=== PATIENT | male | born 1970 | race Caucasian/White ===

== ENCOUNTER 2022-03-28 19:00 | Inpatient (IN) | payer BC ==
[~2022-03-28] VITALS: Ht 177.8 cm; Wt 119.2 kg
[2022-03-28] MEDS ORDERED: IV NORMAL SALINE 1000ML BAG 1,000 ML IV SCH (19:40)
[2022-03-28] MEDS ORDERED: PIPERACILLIN/TAZOBACTAM 3.375 GM in IV NORMAL SALINE 50ML 50 ML IV ONE (20:45)
[2022-03-28] MEDS ORDERED: methylPREDNISolone SOD SUCC PF 125 MG/2 ML VIAL. IV ONE (20:45)
[2022-03-28] MEDS: IV NORMAL SALINE 1000ML BAG 1,000 ML IV SCH (21:15)
[2022-03-28] MEDS ORDERED: methylPREDNISolone SOD SUCC PF 125 MG/2 ML VIAL. ONE (21:23)
[2022-03-29 03:00] VITALS: BP 118/63
[2022-03-29] MEDS ORDERED: FEXO1TAB31 PO (04:27)
[2022-03-29] MEDS ORDERED: CHOL10008 PO (04:27)
[2022-03-29] MEDS ORDERED: TAMS0.4C97 PO (04:27)
[2022-03-29 07:00] VITALS: BP 127/73
[2022-03-29] MEDS: IV NORMAL SALINE 1000ML BAG 1,000 ML IV SCH ×2 (07:51→13:15)
--- NOTE | 2022-03-29 08:19 | PDOC2 ---
CONSULT Date of Consult Date of Consult DATE: 03/29/22 TIME: 08:10 Reason for Consult Reason for Consult: Abdominal pain, acute diverticulitis History of Present Illness Reason for Visit: This is a 51-year-old gentleman who presents with a sudden onset of abdominal pain yesterday. It began in the mid abdomen and some radiation to the right but now more mid left abdomen. No obvious trigger although he did eat a salad the night before. He is on no specific diet and has not recently had a lot of popcorn nuts or seeds. He has never had diverticulitis before but does recall having a CT/MRI to evaluate prostate issues and was told he had mild diverti culosis at that time. He also had a colonoscopy about 10 years ago because of some rectal bleeding but does not recall being told about diverticuli at that time and his bleeding resolved. He denies any fever or chills. His pain is now improved with little or no pain medications overnight after antibiotic treatment. Initial CT revealed sigmoid diverticulitis with 1 small air bubble outside of the wall suggesting microperforation without abscess. He describes a regular bowel pattern without constipation. He denies any rectal bleeding or changes in bowel pattern recently. No nausea, vomiting or other constitutional complaints Past Medical History GI: Diverticulosis Renal/: Other (History of prostate enlargement, hemospermia, possible kidney stone) Current Problem List Problem List Problems Medical Problems: (1) Diverticulitis Status: Acute Current Medications Current Medications Current Medications Sodium Chloride 1,000 ml @ 1,000 mls/hr Q1H IV ; Start 03/28/22 at 19:40; Stop 03/29/22 at 01:15; Status DC Methylprednisolone Sodium Succinate (SOLU-Medrol 125MG VIAL) 125 mg ONCE ONCE IV ; Start 03/28/22 at 20:45; Stop 03/29/22 at 01:11; Status DC Piperacillin Sod/ Tazobactam Sod 3.375 gm/Sodium Chloride 50 ml @ 100 mls/hr ONCE ONCE IV ; Start 03/28/22 at 20:45; Stop 03/29/22 at 01:11; Status DC Sodium Chloride 1,000 ml @ 125 mls/hr Q8H IV Last administered on 03/29/22at 07:51; Start 03/28/22 at 21:15 Active Scripts Active Reported Lynnette-D 24 Hour Tablet (Fexofenadine/Pseudoephedrine) 1 Each Tab.er.24h 1 Each PO DAILY Vitamin D3 (Cholecalciferol (Vitamin D3)) 25 Mcg Tablet 25 Mcg PO DAILY Flomax (Tamsulosin Hcl) 0.4 Mg Cap.er.24h 0.4 Mg PO DAILY Allergies Allergies: Coded Allergies: doxycycline (Verified Allergy, Unknown, Hives, 03/29/22) Physical Exam General: Alert, Oriented X3, Cooperative, No acute distress HEENT: Atraumatic, PERRLA Lungs: Clear to auscultation Heart: Regular rate, Normal S1, Normal S2 Abdomen: Normal bowel sounds, Soft, No tenderness, No hepatosplenomegaly, No masses Extremities: No clubbing, No cyanosis Neuro: Normal speech Psych/Mental Status: Mental status NL Vitals VITALS Vital Signs Date Time Temp Pulse Resp B/P (MAP) Pulse Ox O2 Delivery O2 Flow Rate FiO2 03/29/22 03:00 98.1 68 20 118/63 (81) 96 Room Air 98.1 Labs Labs WBC 15.5, hemoglobin 13.7 electrolytes normal liver function studies were normal, amylase lipase normal Images Images CT scan of the abdomen pelvis done March 28 at 7:57 PM Small hiatal hernia. Scattered colonic diverticulosis. Short segment of inflammatory wall thickening in the distal sigmoid colon with pericolonic stranding consistent with acute diverticulitis. Small focus of air consistent with microperforation but no abscess. Appendix is normal. Lymph nodes normal Assessment/Plan Assessment/Plan Lower abdominal pain initially felt to be on the right but now more mid or left- sided pain. CT scan and elevated white count suggest acute diverticulitis is the most likely source for the symptoms. He is known to have diverticulosis from previous imaging but has never had diverticulitis before. No obvious trigger other than a salad the night before. Normally eats popcorn regularly without symptoms. Denies constipation or other bowel complaints. Had a colonoscopy probably over 10 years ago for rectal bleeding and is due for a screening colonoscopy The pain symptoms have dramatically improved just with antibiotic therapy. He has not asked for any pain medicine overnight. Examination now suggests minimal to no findings including no point tenderness in the left lower quadrant. This is encouraging suggesting his diverticulitis and microperforation are not advancing and are coming under control with antibiotic therapy alone. Plan: Agree with IV antibiotics but since he is clinically improving and has no tenderness in the left lower quadrant, it is likely that his diverticulitis can be treated in the outpatient setting. I will start him on a clear liquid diet to advance to soft as tolerated and recommended switch to p.o. antibiotics with early discharge (as long as his clinical condition continues to improve). Colonoscopy was discussed and should be considered in the outpatient setting 6 weeks after recovery. We will contact him regarding that issue. BIBIANA MART MD Mar 29, 2022 08:19
--- NOTE | 2022-03-29 08:45 | PDOC2 ---
CONSULT Date of Consult Date of Consult DATE: 03/29/22 TIME: 08:42 Reason for Consult Reason for Consult: Abdominal pain Referring Physician Referring Physician: Monika Identification/Chief Complaint Chief Complaint Abdominal pain left lower quadrant Source Source: Chart review, Patient History of Present Illness Reason for Visit: 51-year-old male developed left lower quadrant abdominal pain about 24 hours ago pain consistently worsening to the point that he came to the emergency department for further evaluation thinking he had an acute appendicitis. He denies any nausea vomiting. On evaluation in the emergency department with a CT scan as shown signs of thickened sigmoid colon consistent with diverticulitis with microperforation. This morning is feeling much better resting comfortably in bed describes no abdominal pain other than when pushing in the area. Feeling hungry would like something to eat Past Medical History Cardiovascular: No pertinent hx Pulmonary: No pertinent hx GI: Diverticulosis Heme/Onc: No pertinent hx Hepatobiliary: No pertinent hx Psych: No pertinent hx Rheumatologic: No pertinent hx Infectious disease: No pertinent hx ENT: No pertinent hx Renal/: No pertinent hx, Other (History of prostate enlargement, hemospermia, possible kidney stone) Endocrine: No pertinent hx Dermatology: No pertinent hx Past Surgical History Past Surgical History: No pertinent history Family History Family History: No Significant Current Problem List Problem List Problems Medical Problems: (1) Diverticulitis Status: Acute Current Medications Current Medications Current Medications Sodium Chloride 1,000 ml @ 1,000 mls/hr Q1H IV ; Start 03/28/22 at 19:40; Stop 03/29/22 at 01:15; Status DC Methylprednisolone Sodium Succinate (SOLU-Medrol 125MG VIAL) 125 mg ONCE ONCE IV ; Start 03/28/22 at 20:45; Stop 03/29/22 at 01:11; Status DC Piperacillin Sod/ Tazobactam Sod 3.375 gm/Sodium Chloride 50 ml @ 100 mls/hr ONCE ONCE IV ; Start 03/28/22 at 20:45; Stop 03/29/22 at 01:11; Status DC Sodium Chloride 1,000 ml @ 125 mls/hr Q8H IV Last administered on 03/29/22at 07:51; Start 03/28/22 at 21:15 Metronidazole (Flagyl) 500 mg Q8HRS PO ; Start 03/29/22 at 14:00 Ciprofloxacin (Cipro) 500 mg BID PO ; Start 03/29/22 at 09:00 Active Scripts Active Reported Lynnette-D 24 Hour Tablet (Fexofenadine/Pseudoephedrine) 1 Each Tab.er.24h 1 Each PO DAILY Vitamin D3 (Cholecalciferol (Vitamin D3)) 25 Mcg Tablet 25 Mcg PO DAILY Flomax (Tamsulosin Hcl) 0.4 Mg Cap.er.24h 0.4 Mg PO DAILY Allergies Allergies: Coded Allergies: doxycycline (Verified Allergy, Unknown, Hives, 03/29/22) ROS General: No: Chills, Night Sweats, Fatigue, Malaise, Appetite, Other PSYCHOLOGICAL ROS: No: Anxiety, Behavioral Disorder, Concentration difficultie, Decreased libido, Depression, Disorientation, Hallucinations, Hostility, Irritablity, Memory difficulties, Mood Swings, Obsessive thoughts, Physical abuse, Sexual abuse, Sleep disturbances, Suicidal ideation, Other Eyes: No Blurry vision, No Decreased vision, No Double vision, No Dry eyes, No Excessive tearing, No Eye Pain, No Itchy Eyes, No Loss of vision, No Photophobia, No Scotomata, No Uses contacts, No Uses glasses, No Other HEENT: No: Heacaches, Visual Changes, Hearing change, Nasal congestion, Nasal discharge, Oral lesions, Sinus pain, Sore Throat, Epistaxis, Sneezing, Snoring, Tinnitus, Vertigo, Vocal changes, Other ALLERGY AND IMMUNOLOGY: No: Hives, Insect Bite Sensitivity, Itchy/Watery Eyes, Nasal Congestion, Post Nasal Drip, Seasonal Allergies, Other Hematological and Lymphatic: No: Bleeding Problems, Blood Clots, Blood Transfusions, Brusing, Night Sweats, Pallor, Swollen Lymph Nodes, Other ENDOCRINE: No: Breast Changes, Galactorrhea, Hair Pattern Changes, Hot Flashes, Malaise/lethargy, Mood Swings, Palpitations, Polydipsia/polyuria, Skin Changes, Temperature Intolerance, Unexpected Weight Changes, Other Respiratory: No: Cough, Hemoptysis, Orthopnea, Pleuritic Pain, Shortness of breath, SOB with excertion, Sputum Changes, Stridor, Tachypnea, Wheezing, Other Cardiovascular: No Chest Pain, No Palpitations, No Orthopnea, No Paroxysmal Noc. Dyspnea, No Edema, No Lt Headedness, No Other Gastrointestinal: Yes Abdominal Pain Genitourinary: No Dysuria, No Frequency, No Incontinence, No Hematuria, No Retention, No Discharge, No Urgency, No Pain, No Flank Pain, No Other, No , No , No , No , No , No , No Musculoskeletal: No Gait Disturbance, No Joint Pain, No Joint Stiffness, No Joint Swelling, No Muscle Pain, No Muscular Weakness, No Pain In:, No Swelling In:, No Other Neurological: No Behavorial Changes, No Bowel/Bladder ControlChng, No Confusion, No Dizziness, No Gait Disturbance, No Headaches, No Impaired Coord/balance, No Memory Loss, No Numbness/Tingling, No Seizures, No Speech Problems, No Tremors, No Visual Changes, No Weakness, No Other Skin: No Dry Skin, No Eczema, No Hair Changes, No Lumps, No Mole Changes, No Mottling, No Nail Changes, No Pruritus, No Rash, No Skin Lesion Changes, No Other, No Acne Physical Exam General: Alert, Oriented X3, Cooperative, mild distress HEENT: Atraumatic, EOMI Lungs: Clear to auscultation, Normal air movement Heart: Regular rate, No murmurs Abdomen: Normal bowel sounds, Soft, Other (Mildly tender to palpation left lower quadrant) Extremities: No edema Skin: No significant lesion Neuro: Normal speech Psych/Mental Status: Mental status NL Vitals VITALS Vital Signs Date Time Temp Pulse Resp B/P (MAP) Pulse Ox O2 Delivery O2 Flow Rate FiO2 03/29/22 07:45 Room Air 03/29/22 07:00 98.2 68 18 127/73 (91) 96 98.2 Assessment/Plan Assessment/Plan Diverticulitis with microperforation continue IV antibiotics advance diet Agree with GIs assessment and treatment plan No surgical needs at this time BETHANY PATEL MD Mar 29, 2022 08:45
[2022-03-29] MEDS ORDERED: CIPROFLOXACIN HCL 250 MG TABLET. PO SCH (09:00)
[2022-03-29 10:39] LABS: BASO % 0 % (0-3); EOS % 0 % (0-3); HEMATOCRIT 40.6 % (39.0-53.0); HEMOGLOBIN 13.8 g/dL (13.0-17.5); LYMPH # 0.5 x10^3/uL (1.0-4.8); LYMPH % 3 % (24-48); MEAN CORPUSCULAR HEMOGLOBIN 28 pg (25-35); MEAN CORPUSCULAR HGB CONC 34 g/dL (31-37); MEAN CORPUSCULAR VOLUME 83 fL (79-100); MONO # 0.2 x10^3/uL (0.0-1.1); MONO % 1 % (0-9); NEUT # 13.2 x10^3/uL (1.8-7.7); NEUT % 95 % (31-73); PLATELET COUNT 173 x10^3/uL (140-400); RED BLOOD COUNT 4.92 x10^6/uL (4.30-5.70); RED CELL DISTRIBUTION WIDTH 13.4 % (11.5-14.5); WHITE BLOOD COUNT 13.9 x10^3/uL (4.0-11.0)
[2022-03-29 11:00] VITALS: BP 126/54
[2022-03-29 11:12] LABS: BACTERIA,URINE FEW /HPF (0-FEW); RBC,URINE 0 /HPF (0-2); WBC,URINE 0 /HPF (0-4)
[2022-03-29 11:13] LABS: ALBUMIN 3.3 g/dL (3.4-5.0); ALBUMIN/GLOBULIN RATIO 0.9 (1.0-1.7); AMORPHOUS SEDIMENT,UR PRESENT /HPF; CALCIUM 8.3 mg/dL (8.5-10.1); CREATININE 1.1 mg/dL (0.7-1.3); POTASSIUM 3.7 mmol/L (3.5-5.1); TOTAL BILIRUBIN 0.9 mg/dL (0.2-1.0); TOTAL PROTEIN 6.8 g/dL (6.4-8.2)
[2022-03-29 11:14] LABS: DIRECT BILIRUBIN 0.2 mg/dL (0.0-0.2)
[2022-03-29 11:20] LABS: BASO # 0.1 x10^3/uL (0.0-0.2); BASO % 1 % (0-3); EOS % 0 % (0-3); HEMATOCRIT 40.2 % (39.0-53.0); HEMOGLOBIN 13.7 g/dL (13.0-17.5); LYMPH # 1.6 x10^3/uL (1.0-4.8); LYMPH % 10 % (24-48); MEAN CORPUSCULAR HEMOGLOBIN 28 pg (25-35); MEAN CORPUSCULAR HGB CONC 34 g/dL (31-37); MEAN CORPUSCULAR VOLUME 83 fL (79-100); MONO # 1.4 x10^3/uL (0.0-1.1); MONO % 9 % (0-9); NEUT # 12.3 x10^3/uL (1.8-7.7); NEUT % 80 % (31-73); PLATELET COUNT 179 x10^3/uL (140-400); RED BLOOD COUNT 4.86 x10^6/uL (4.30-5.70); RED CELL DISTRIBUTION WIDTH 13.6 % (11.5-14.5); WHITE BLOOD COUNT 15.5 x10^3/uL (4.0-11.0)
--- NOTE | 2022-03-29 11:32 | PDOC1 ---
History and Physical Date of Service: DOS: DATE: 03/29/22 TIME: 11:26 Chief Complaint: Chief Complain: Abdominal pain History of Present Illness: HPI: 48-year-old male with no significant past medical history comes in with sudden onset of abdominal pain that began in the mid abdominal region. Pain did radiate to the right side but is now more bilateral. No obvious triggers. Last colonoscopy was 10 years ago for rectal bleeding. No reports of diverticulosis at the time. Patient currently denies any nausea vomiting, fevers or chills, shortness of breath, bloody stools. Past Medical/Surgical History: PMH/PSH: Seasonal allergies, inguinal hernia Allergies: Allergies: Coded Allergies: doxycycline (Verified Allergy, Unknown, Hives, 03/29/22) Family History: Family History: Reviewed with no relative findings in the chart Social History: Social History: Denies any alcohol, tobacco or drug abuse. Current Medications: Current Medications Current Medications Sodium Chloride 1,000 ml @ 1,000 mls/hr Q1H IV ; Start 03/28/22 at 19:40; Stop 03/29/22 at 01:15; Status DC Methylprednisolone Sodium Succinate (SOLU-Medrol 125MG VIAL) 125 mg ONCE ONCE IV ; Start 03/28/22 at 20:45; Stop 03/29/22 at 01:11; Status DC Piperacillin Sod/ Tazobactam Sod 3.375 gm/Sodium Chloride 50 ml @ 100 mls/hr ONCE ONCE IV ; Start 03/28/22 at 20:45; Stop 03/29/22 at 01:11; Status DC Sodium Chloride 1,000 ml @ 125 mls/hr Q8H IV Last administered on 03/29/22at 07:51; Start 03/28/22 at 21:15 Metronidazole (Flagyl) 500 mg Q8HRS PO ; Start 03/29/22 at 14:00 Ciprofloxacin (Cipro) 500 mg BID PO Last administered on 03/29/22at 09:24; Start 03/29/22 at 09:00 Active Scripts Active Reported Lynnette-D 24 Hour Tablet (Fexofenadine/Pseudoephedrine) 1 Each Tab.er.24h 1 Each PO DAILY Vitamin D3 (Cholecalciferol (Vitamin D3)) 25 Mcg Tablet 25 Mcg PO DAILY Flomax (Tamsulosin Hcl) 0.4 Mg Cap.er.24h 0.4 Mg PO DAILY ROS: Review of Systems Review of System REVIEW OF SYSTEMS: GENERAL: Denies weakness SKIN: No bruising, hair changes or rashes. EYES: No blurred, double or loss of vision. NOSE AND THROAT: No history of nosebleeds, hoarseness or sore throat. HEART: No history of palpitations, chest pain or shortness of breath on exertion. LUNGS: Denies cough, hemoptysis, wheezing or shortness of breath. GASTROINTESTINAL: Abdominal pain GENITOURINARY: No history of frequency, urgency, hesitancy or nocturia. NEUROLOGIC: Denies history of numbness, tingling, or tremor. PSYCHIATRIC: No history of panic, anxiety or depression. ENDOCRINE: No history of heat or cold intolerance, polyuria or polydipsia. EXTREMITIES: Denies joint pain, pain on walking or stiffness. Physical Exam: Vital Signs: Vital Signs Date Time Temp Pulse Resp B/P (MAP) Pulse Ox O2 Delivery O2 Flow Rate FiO2 03/29/22 07:45 Room Air 03/29/22 07:00 98.2 68 18 127/73 (91) 96 98.2 Physcial Exam: General: Well developed, well nourished, no acute distress, well appearing HEENT: Pupils equally round and reactive to light, EOMI, no discharge, normal conjunctiva Neck: Supple, no nuchal rigidity, no JVD, trachea midline, no tenderness Cardiac: RRR, no murmurs, no gallops, no rubs Chest/Lungs: CTAB, no wheeze, no rhonchi, no crackles Abdomen: soft, non-distended, no guarding, no peritoneal signs, tender in the bilateral lower quadrants Back: No tenderness Extremities: no edema, pulses intact, non-tender,capillary refill <3 sec bilateral upper and lower extremities, Neuro: Alert and oriented x 4, no focal deficits, normal speech Labs: Labs: Laboratory Tests Test 03/28/22 20:30 03/29/22 10:00 White Blood Count 15.5 x10^3/uL (4.0-11.0) 13.9 x10^3/uL (4.0-11.0) Red Blood Count 4.86 x10^6/uL (4.30-5.70) 4.92 x10^6/uL (4.30-5.70) Hemoglobin 13.7 g/dL (13.0-17.5) 13.8 g/dL (13.0-17.5) Hematocrit 40.2 % (39.0-53.0) 40.6 % (39.0-53.0) Mean Corpuscular Volume 83 fL (79-100) 83 fL (79-100) Mean Corpuscular Hemoglobin 28 pg (25-35) 28 pg (25-35) Mean Corpuscular Hemoglobin Concent 34 g/dL (31-37) 34 g/dL (31-37) Red Cell Distribution Width 13.6 % (11.5-14.5) 13.4 % (11.5-14.5) Platelet Count 179 x10^3/uL (140-400) 173 x10^3/uL (140-400) Neutrophils (%) (Auto) 80 % (31-73) 95 % (31-73) Lymphocytes (%) (Auto) 10 % (24-48) 3 % (24-48) Monocytes (%) (Auto) 9 % (0-9) 1 % (0-9) Eosinophils (%) (Auto) 0 % (0-3) 0 % (0-3) Basophils (%) (Auto) 1 % (0-3) 0 % (0-3) Neutrophils # (Auto) 12.3 x10^3/uL (1.8-7.7) 13.2 x10^3/uL (1.8-7.7) Lymphocytes # (Auto) 1.6 x10^3/uL (1.0-4.8) 0.5 x10^3/uL (1.0-4.8) Monocytes # (Auto) 1.4 x10^3/uL (0.0-1.1) 0.2 x10^3/uL (0.0-1.1) Eosinophils # (Auto) 0.0 x10^3/uL (0.0-0.7) 0.0 x10^3/uL (0.0-0.7) Basophils # (Auto) 0.1 x10^3/uL (0.0-0.2) 0.0 x10^3/uL (0.0-0.2) Urine Collection Type Unknown Urine Color (Auto) Yellow Urine Turbidity Hazy Urine pH (Auto) 6.0 (<5.0-8.0) Urine Specific [place] 1.034 (1.000-1.030) Urine Protein (Auto) 70 mg/dL (Negative) Urine Glucose (Auto)(UA) Negative mg/dL (Negative) Urine Ketones (Auto) Trace mg/dL (Negative) Urine Blood (Auto) Negative (Negative) Urine Nitrite (Auto) Negative (Negative) Urine Bilirubin (Auto) Negative (Negative) Urine Urobilinogen (Auto) 3 mg/dL (Normal) Urine Leukocyte Esterase (Auto) Negative (Negative) Urine RBC 0 /HPF (0-2) Urine WBC 0 /HPF (0-4) Urine Squamous Epithelial Cells Few /LPF Urine Amorphous Sediment Present /HPF Urine Bacteria Few /HPF (0-FEW) Urine Mucus Marked /LPF Sodium Level 137 mmol/L (136-145) Potassium Level 3.7 mmol/L (3.5-5.1) Chloride Level 102 mmol/L (98-107) Carbon Dioxide Level 28 mmol/L (21-32) Anion Gap 7 (6-14) Blood Urea Nitrogen 10 mg/dL (8-26) Creatinine 1.1 mg/dL (0.7-1.3) Estimated GFR (Cockcroft-Gault) 70.0 BUN/Creatinine Ratio 9 (6-20) Glucose Level 97 mg/dL (70-99) Calcium Level 8.3 mg/dL (8.5-10.1) Total Bilirubin 0.9 mg/dL (0.2-1.0) Direct Bilirubin 0.2 mg/dL (0.0-0.2) Aspartate Amino Transf (AST/SGOT) 20 U/L (15-37) Alanine Aminotransferase (ALT/SGPT) 28 U/L (16-63) Alkaline Phosphatase 78 U/L (46-116) Total Protein 6.8 g/dL (6.4-8.2) Albumin 3.3 g/dL (3.4-5.0) Albumin/Globulin Ratio 0.9 (1.0-1.7) Amylase Level 37 U/L (25-115) Lipase 48 U/L (73-393) Laboratory Tests Test 03/28/22 20:30 03/29/22 10:00 White Blood Count 15.5 x10^3/uL (4.0-11.0) 13.9 x10^3/uL (4.0-11.0) Red Blood Count 4.86 x10^6/uL (4.30-5.70) 4.92 x10^6/uL (4.30-5.70) Hemoglobin 13.7 g/dL (13.0-17.5) 13.8 g/dL (13.0-17.5) Hematocrit 40.2 % (39.0-53.0) 40.6 % (39.0-53.0) Mean Corpuscular Volume 83 fL (79-100) 83 fL (79-100) Mean Corpuscular Hemoglobin 28 pg (25-35) 28 pg (25-35) Mean Corpuscular Hemoglobin Concent 34 g/dL (31-37) 34 g/dL (31-37) Red Cell Distribution Width 13.6 % (11.5-14.5) 13.4 % (11.5-14.5) Platelet Count 179 x10^3/uL (140-400) 173 x10^3/uL (140-400) Neutrophils (%) (Auto) 80 % (31-73) 95 % (31-73) Lymphocytes (%) (Auto) 10 % (24-48) 3 % (24-48) Monocytes (%) (Auto) 9 % (0-9) 1 % (0-9) Eosinophils (%) (Auto) 0 % (0-3) 0 % (0-3) Basophils (%) (Auto) 1 % (0-3) 0 % (0-3) Neutrophils # (Auto) 12.3 x10^3/uL (1.8-7.7) 13.2 x10^3/uL (1.8-7.7) Lymphocytes # (Auto) 1.6 x10^3/uL (1.0-4.8) 0.5 x10^3/uL (1.0-4.8) Monocytes # (Auto) 1.4 x10^3/uL (0.0-1.1) 0.2 x10^3/uL (0.0-1.1) Eosinophils # (Auto) 0.0 x10^3/uL (0.0-0.7) 0.0 x10^3/uL (0.0-0.7) Basophils # (Auto) 0.1 x10^3/uL (0.0-0.2) 0.0 x10^3/uL (0.0-0.2) Urine Collection Type Unknown Urine Color (Auto) Yellow Urine Turbidity Hazy Urine pH (Auto) 6.0 (<5.0-8.0) Urine Specific [place] 1.034 (1.000-1.030) Urine Protein (Auto) 70 mg/dL (Negative) Urine Glucose (Auto)(UA) Negative mg/dL (Negative) Urine Ketones (Auto) Trace mg/dL (Negative) Urine Blood (Auto) Negative (Negative) Urine Nitrite (Auto) Negative (Negative) Urine Bilirubin (Auto) Negative (Negative) Urine Urobilinogen (Auto) 3 mg/dL (Normal) Urine Leukocyte Esterase (Auto) Negative (Negative) Urine RBC 0 /HPF (0-2) Urine WBC 0 /HPF (0-4) Urine Squamous Epithelial Cells Few /LPF Urine Amorphous Sediment Present /HPF Urine Bacteria Few /HPF (0-FEW) Urine Mucus Marked /LPF Sodium Level 137 mmol/L (136-145) Potassium Level 3.7 mmol/L (3.5-5.1) Chloride Level 102 mmol/L (98-107) Carbon Dioxide Level 28 mmol/L (21-32) Anion Gap 7 (6-14) Blood Urea Nitrogen 10 mg/dL (8-26) Creatinine 1.1 mg/dL (0.7-1.3) Estimated GFR (Cockcroft-Gault) 70.0 BUN/Creatinine Ratio 9 (6-20) Glucose Level 97 mg/dL (70-99) Calcium Level 8.3 mg/dL (8.5-10.1) Total Bilirubin 0.9 mg/dL (0.2-1.0) Direct Bilirubin 0.2 mg/dL (0.0-0.2) Aspartate Amino Transf (AST/SGOT) 20 U/L (15-37) Alanine Aminotransferase (ALT/SGPT) 28 U/L (16-63) Alkaline Phosphatase 78 U/L (46-116) Total Protein 6.8 g/dL (6.4-8.2) Albumin 3.3 g/dL (3.4-5.0) Albumin/Globulin Ratio 0.9 (1.0-1.7) Amylase Level 37 U/L (25-115) Lipase 48 U/L (73-393) Images: Images CT showing evidence for diverticulitis. Pending final results. Assessment/Plan Assessment/Plan Acute abdominal pain secondary to diverticulitis Reactive leukocytosis Morbid obesity admit to hospitalist service for further management Surgery consult GI consult SCD and ambulation for DVT prophylaxis Protonix GI prophylaxis Soft GI ADAT CODE STATUS full Discussed with RN and SW Disposition inpatient management as above DPOA: Justifications for Admission Other Justification TARSHA MCQUEEN MD Mar 29, 2022 11:32
[2022-03-29] MEDS ORDERED: metroNIDAZOLE 500 MG TABLET PO SCH (14:00)
[2022-03-29] MEDS ORDERED: PSYL0.5215 PO (15:00)
[2022-03-29] MEDS ORDERED: CIPR250T30 PO (15:00)
[2022-03-29] MEDS ORDERED: SENN1TAB99 PO (15:00)
[2022-03-29] MEDS ORDERED: METR-34 PO (15:00)
--- NOTE | 2022-03-29 15:04 | DISCH ---
DISCHARGE INSTRUCTIONS Condition on Discharge Condition on Discharge: Stable Activity After Discharge Activity Instructions for Disc: Activity as tolerated Lifting Instructions after Dis: Do not lift >10 pounds Exercise Instruction after Dis: Walk 30 min, 5 x per week Diet after Discharge Diet after Discharge: Cardiac Follow-Up Follow up with: PCP within 2 weeks of discharge Follow Up With: Gastroenterology for colonoscopy, in 6 weeks is the optimal timing TARSHA MCQUEEN MD Mar 29, 2022 15:04
--- NOTE | 2022-03-29 15:40 | NUR ---
Discharge Note: KELBY GILL [place] Discharge instructions and discharge home medications reviewed with Patient and a copy given. All questions have been answered and understanding verbalized. The following instructions and handouts were given: discharge instructions, new prescriptions, education and follow up recommendations. Discontinued lines and drains: Peripheral IV discontinued ntact. Patient discharged to Home or Self Care with Spouse via Ambulated off unit by H[facility]IC[facility]IST.
--- NOTE | 2022-03-30 13:12 | PDOC3 ---
[facility]-Discharge Summary Date of Admission: Date of Admission: April 28, 2022 Date of Discharge: Date of Discharge: April 28, 2022 Discharge Diagnosis: Discharge Diagnosis: Acute abdominal pain secondary to diverticulitis Reactive leukocytosis Hospital Course: Hospital Course: 48-year-old male with no significant past medical history comes in with sudden onset of abdominal pain that began in the mid abdominal region. Pain did radiate to the right side but is now more bilateral. No obvious triggers. Last colonoscopy was 10 years ago for rectal bleeding. No reports of diverticulosis at the time. Patient currently denies any nausea vomiting, fevers or chills, shortness of breath, bloody stools. Patient mid for further care. Kept on IV antibiotics and evaluate by GI. Cabezas from GI standpoint to discharge once patient is tolerating full liquid diet. Antibiotics were switched to p.o. Educated on high-fiber diets and hydration and regular bowel movements every 1 to 2 days. Patient will need colonoscopy in 6 weeks. Rest of hospital course was uneventful. Disposition: Disposition/Orders: D/C to Home Activity: Activity: Resume previous activity Diet: Diet: Soft Medications: Home Meds Active Scripts Psyllium Husk (METAMUCIL) 0.52 Gm Capsule, 1 CAP PO DAILY for stool softener for 30 Days, #30 CAP 0 Refills Prov:TARSHA MCQUEEN MD 03/29/22 Sennosides/Docusate Sodium (Senna-Docusate Sodium Tablet) 1 Each Tablet, 2 TAB PO BID for constipation for 5 Days, #20 TAB 0 Refills Prov:TARSHA MCQUEEN MD 03/29/22 Metronidazole (METRONIDAZOLE) 500 Mg Tablet, 500 MG PO Q8HRS for diverticulitis for 5 Days, #15 TAB Prov:TARSHA MCQUEEN MD 03/29/22 Ciprofloxacin Hcl (CIPRO) 250 Mg Tablet, 500 MG PO BID for diverticulitis for 5 Days, #20 TAB Prov:TARSHA MCQUEEN MD 03/29/22 Reported Medications Fexofenadine/Pseudoephedrine (KIEL-D 24 HOUR TABLET) 1 Each Tab.er.24h, 1 EACH PO DAILY for seasonal allergies, TAB 03/29/22 Cholecalciferol (Vitamin D3) (Vitamin D3) 25 Mcg Tablet, 25 MCG PO DAILY for supplement, TAB 03/29/22 Tamsulosin Hcl (FLOMAX) 0.4 Mg Cap.er.24h, 0.4 MG PO DAILY for prostate problem, TAB 03/29/22 Scheduled Cholecalciferol (Vitamin D3) (Vitamin D3), 25 MCG PO DAILY, (Reported) Ciprofloxacin Hcl (Cipro), 500 MG PO BID Fexofenadine/Pseudoephedrine (Kiel-D 24 Hour Tablet), 1 EACH PO DAILY, (Reported) Metronidazole (Metronidazole), 500 MG PO Q8HRS Psyllium Husk (Metamucil), 1 CAP PO DAILY Sennosides/Docusate Sodium (Senna-Docusate Sodium Tablet), 2 TAB PO BID Tamsulosin Hcl (Flomax), 0.4 MG PO DAILY, (Reported) Total Time: Total Time: Total time spent was 32 minutes in preparing scripts, discharge planning with SWI and RN and preparing this discharge summary Patient seen and examined on day of discharge. No acute abnormal findings. Justicifation of Admission Dx: Justifications for Admission: Justification of Admission Dx: Yes Comments: Diverticulitis TARSHA MCQUEEN MD March 30, 2022 13:12
--- NOTE | 2022-03-31 09:35 | RAD ---
EXAMINATION: CT ABDOMEN/PELVIS W/O . INDICATION: GENERALIZED ABD PAIN COMPARISON: None TECHNIQUE: CT images were acquired through the abdomen and pelvis. Sagittal and coronal reformatted s eries were provided. FINDINGS: Lung Bases: Lung bases are clear. Heart size normal. Coronary atherosclerotic disease. Abdomen: Liver: Unremarkable Gallbladder & Biliary System: Unremarkable Spleen: Unremarkable Pancreas: Unremarkable Adrenal Glands: Unremarkable Kidneys: Unremarkable. No obstructing nephrolithiasis or hydroureteronephrosis. Bowel: Tiny hiatal hernia. Stomach is unremarkable. No evidence of small bowel obstruction or focal i nflammatory changes. Scattered colonic diverticulosis. Short segment of inflammatory wall thickening of the distal sigmoid colon with pericolonic stranding, consistent with acute diverticulitis there is a small focus of air consistent with a microperforation. No abscess formation. Appendix is normal. Lymph Nodes: No pathologically enlarged abdominal adenopathy. Vasculature: Normal in course and caliber. Other: No free intra-abdominal fluid. Pelvis: Bladder: Decompressed but unremarkable in appearance. Reproductive Organs: Unremarkable Lymph Nodes: Unremarkable Other: No significant free pelvic fluid Body Wall: Unremarkable Bones: Unremarkable IMPRESSION: Findings of acute diverticulitis involving the sigmoid colon with tiny microperforation. No evidence of abscess formation. Inflammatory changes degraded evaluation for suspicious colonic wall thickening . Recommend follow-up to resolution. PRQS compliance statement - One or more of the following individualized dose reduction techniques wer e utilized for this study: 1. Automated exposure control 2. Adjustment of the mA and/or kV according to patient size 3. Use of iterative reconstruction technique Electronically signed by: Darrin Sanchez DO (03/28/2022 8:16 PM) [facility]
== END 2022-03-29 15:40 | disposition home or self-care (01) | DRG 392 ==
LOC: ER 19:00 → ED HOLD 21:00 → 5 NORTH 03-29 00:36
PROVIDERS: ADMIT Family Medicine; ATTEND Family Medicine
DX: K57.20 Diverticulitis of large intestine with perforation and abscess without bleeding (principal); D72.828 Other elevated white blood cell count; E66.01 Morbid (severe) obesity due to excess calories; J30.2 Other seasonal allergic rhinitis; K40.90 Unilateral inguinal hernia, without obstruction or gangrene, not specified as recurrent; N40.0 Benign prostatic hyperplasia without lower urinary tract symptoms; Z88.8 Allergy status to other drugs, medicaments and biological substances; Z68.37 Body mass index [BMI] 37.0-37.9, adult
CPT/HCPCS: 36415; 74176; 80053; 81001; 82150; 82248; 83690; 85025; J7030